=== PATIENT | male | born 1960 | race Caucasian/White ===

== ENCOUNTER 2017-02-09 10:20 | Inpatient (IN) | payer MEDICAID ==
[~2017-02-09] VITALS: Ht 188 cm; Wt 97.5 kg
[2017-02-09 11:38] LABS: BASOPHIL % 0.4 % (0-2); PLATELET COUNT 248 x10^3mcL (130-400); RED CELL DISTRIBUTION WIDTH 13.5 % (11.5-14.5)
[2017-02-09 11:49] LABS: CALCIUM 8.8 mg/dL (8.5-10.1); CARBON DIOXIDE 29.1 mmol/L (21-32); CHLORIDE SERUM 105 mmol/L (98-107); CREATININE SERUM 1.1 mg/dL (0.7-1.3); GFR1 > 60 mL/min; GLUCOSE SERUM 125 mg/dL (74-106); POTASSIUM SERUM 3.9 mmol/L (3.5-5.1); SODIUM SERUM 141 mmol/L (136-145)
[2017-02-09 11:56] LABS: ALBUMIN 4.3 g/dL (3.4-5.0); ALKALINE PHOSPHATASE 65 U/L (46-116); ALT/SGPT 41 U/L (16-63); AST/SGOT 18 U/L (15-37); BILIRUBIN TOTAL 0.46 mg/dL (0.20-1.00)
[2017-02-09 12:18] LABS: microscopic required? NO
[2017-02-09 12:31] LABS: urine erythrocyte NEGATIVE (NEGATIVE)
[2017-02-09 12:39] LABS: AMPHETAMINE QUAL UR NONE DETECTED (NEG <=1000)
[2017-02-09] MEDS ORDERED: MAGNESIUM OXID400 MG PO (12:53)
[2017-02-09] MEDS ORDERED: [UNRECOGNIZED DRUG - OTHER] (12:53)
[2017-02-09] MEDS ORDERED: SIMVASTATIN20 M1 PO (13:12)
[2017-02-09] MEDS ORDERED: ELIQUIS5 MG PO (13:13)
[2017-02-09] MEDS ORDERED: PROPAFENONE HC150 MG PO (13:14)
[2017-02-09] MEDS ORDERED: DIGOXIN0.125 M1 PO (13:14)
[2017-02-09 13:30] VITALS: BP 135/76
[2017-02-09 13:32] VITALS: Ht 188 cm; Wt 97.5 kg
[2017-02-09 13:38] LABS: CHOLESTEROL/HDL RATIO 4.1; T3 TOTAL 1.34 ng/mL
[2017-02-09 13:48] LABS: FREE T4 0.91 ng/dL (0.76-1.46); FREE THYROXINE INDEX 2.3 ug/dL (1.4-4.5); T4(THYROXINE) 7.4 ug/dL (4.7-13.3)
[2017-02-09 18:36] VITALS: BP 128/66
[2017-02-09 20:48] VITALS: BP 128/72
[2017-02-09 22:09] VITALS: BP 128/72
[2017-02-10 06:02] VITALS: BP 116/66
[2017-02-10 07:39] LABS: CALCIUM 8.7 mg/dL (8.5-10.1); CARBON DIOXIDE 25.5 mmol/L (21-32); CHLORIDE SERUM 106 mmol/L (98-107); CREATININE SERUM 0.9 mg/dL (0.7-1.3); GFR1 > 60 mL/min; GLUCOSE SERUM 125 mg/dL (74-106); MAGNESIUM 1.8 mg/dL (1.8-2.4); PHOSPHOROUS 3.9 mg/dL (2.5-4.9); SODIUM SERUM 140 mmol/L (136-145)
[2017-02-10 07:41] LABS: BASOPHIL % 0.4 % (0-2); PLATELET COUNT 213 x10^3mcL (130-400); RED CELL DISTRIBUTION WIDTH 13.9 % (11.5-14.5)
[2017-02-10 09:27] VITALS: BP 126/60
[2017-02-10 18:08] VITALS: BP 134/77
[2017-02-10 20:59] VITALS: BP 121/67
[2017-02-11 06:05] VITALS: BP 109/56
[2017-02-11 06:38] LABS: BASOPHIL % 0.4 % (0-2); PLATELET COUNT 216 x10^3mcL (130-400); RED CELL DISTRIBUTION WIDTH 13.7 % (11.5-14.5)
[2017-02-11 06:52] LABS: CALCIUM 8.9 mg/dL (8.5-10.1); CARBON DIOXIDE 27.9 mmol/L (21-32); CHLORIDE SERUM 105 mmol/L (98-107); CREATININE SERUM 0.9 mg/dL (0.7-1.3); GFR1 > 60 mL/min; GLUCOSE SERUM 101 mg/dL (74-106); MAGNESIUM 1.8 mg/dL (1.8-2.4); PHOSPHOROUS 4.4 mg/dL (2.5-4.9); POTASSIUM SERUM 4.2 mmol/L (3.5-5.1); SODIUM SERUM 140 mmol/L (136-145)
[2017-02-11 08:53] VITALS: BP 126/66
[2017-02-11 12:13] VITALS: BP 117/67
[2017-02-11 22:10] VITALS: BP 112/68
[2017-02-12 05:58] VITALS: BP 113/61
[2017-02-12 06:27] LABS: CALCIUM 9.1 mg/dL (8.5-10.1); CARBON DIOXIDE 27.3 mmol/L (21-32); CHLORIDE SERUM 106 mmol/L (98-107); CREATININE SERUM 0.9 mg/dL (0.7-1.3); GFR1 > 60 mL/min; GLUCOSE SERUM 104 mg/dL (74-106); POTASSIUM SERUM 4.5 mmol/L (3.5-5.1); SODIUM SERUM 142 mmol/L (136-145)
[2017-02-12 06:40] LABS: BASOPHIL % 0.3 % (0-2); PLATELET COUNT 237 x10^3mcL (130-400); RED CELL DISTRIBUTION WIDTH 13.6 % (11.5-14.5)
[2017-02-12] MEDS ORDERED: LOP600 PO (09:22)
[2017-02-12] MEDS ORDERED: ECO81 PO (09:24)
[2017-02-12 09:38] VITALS: BP 133/70
[2017-02-12 12:04] VITALS: BP 133/70
[2017-02-12 13:07] VITALS: BP 113/75
== END 2017-02-12 14:10 | disposition home or self-care (01) | DRG 204 ==
LOC: ED 10:20 → MU 12:14 → DU 12:14 → MU 12:14 → DU 13:12 → MU 02-10 20:10
PROVIDERS: Emergency Medicine; Family Medicine; ADMIT Family Medicine
DX: R55 Syncope and collapse (principal); K85.90 Acute pancreatitis without necrosis or infection, unspecified; I48.91 Unspecified atrial fibrillation; R73.03 Prediabetes; D64.9 Anemia, unspecified; E78.5 Hyperlipidemia, unspecified; Z68.27 Body mass index [BMI] 27.0-27.9, adult; Z87.891 Personal history of nicotine dependence; Z79.01 Long term (current) use of anticoagulants
CPT/HCPCS: 80307; 82962; 83880; 84439; A9579; G0480; J7030; Q0092